=== PATIENT | female | born 1965 | race Caucasian/White ===

== ENCOUNTER 2017-08-07 21:59 | Emergency (ER) | payer MEDICAID ==
[~2017-08-07] VITALS: Ht 160 cm; Wt 61.2 kg
[~2017-08-07 21:59] MED LIST: ALBUTEROL SULF8.5 GM INH; AZITHROMYCIN250 MG ORAL; CLINDAMYCIN HC300 MG ORAL; IBUPROFEN600 MG ORAL; NKM
[2017-08-07 22:34] VITALS: BP 118/76
[2017-08-07] MEDS ORDERED: IBUPROFEN600 MG ORAL (22:36)
[2017-08-07] MEDS ORDERED: AMOXICILLIN500 MG ORAL (22:36)
--- NOTE | 2017-08-07 22:37 | Emergency Room Report ---
History of Present Illness General Chief Complaint: Toothache Source: Patient Present Illness HPI Is a 51-year-old female with no sign of and past medical history. She presents with chief complaint of toothache. Onset for last 3 days. She has a cracked tooth his been there for a while now. Now with painful sensation to the right upper face. She was concerned that this may be related to her head injury she had a week ago. Was to pop her head into a shelf. No loss of consciousness. Pain is 7 out of 10. She has not take anything for it. Allergies: Coded Allergies: SULFAMETHOXAZOLE (Verified Allergy, Intermediate, Anaphylaxis, 03/06/12) TRIMETHOPRIM (Verified Allergy, Intermediate, Anaphylaxis, 03/06/12) CODEINE (Verified Adverse Reaction, Intermediate, GI UPSET, 03/06/12) Patient History Past Medical History: see triage record, old chart reviewed Past Surgical History: other Pertinent Family History: none Social History: Denies: smoking Last Menstrual Period: n/a Now: No Immunizations: other Reviewed Nursing Documentation: PMH: Agreed; PSxH: Agreed Nursing Documentation-PM Past Medical History: No Stated History Review of Systems Eye: Denies: eye pain, blurred vision ENT: Denies: ear pain, nose congestion, throat swelling Respiratory: Denies: cough, shortness of breath Cardiovascular: Denies: chest pain, palpitations Gastrointestinal: Denies: abdominal pain, diarrhea, nausea, vomiting Musculoskeletal: Denies: back pain, joint pain Skin: Denies: rash Neurological: Denies: headache, numbness Endocrine: Denies: increased thirst, increased urine Hematologic/Lymphatic: Denies: easy bruising All Other Systems: negative except mentioned in HPI Physical Exam Vital Signs Date Time Temp Pulse Resp B/P (MAP) Pulse Ox O2 Delivery O2 Flow Rate FiO2 08/07/17 22:19 98.3 73 16 118/76 100 Room Air 98.2 vitals normal Sp02 EP Interpretation: reviewed, normal General Appearance: well appearing, no apparent distress, alert Head: normocephalic, atraumatic Eyes: bilateral eye PERRL, bilateral eye EOMI ENT: hearing grossly normal, normal pharynx, other - 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 No abscess seen. No redness. Neck: full range of motion, supple, no meningismus Respiratory: chest non-tender, lungs clear, normal breath sounds Cardiovascular #1: regular rate, rhythm, no murmur Gastrointestinal: normal bowel sounds, non tender, no mass, no organomegaly, no bruit, non-distended Musculoskeletal: back normal, gait/station normal, normal range of motion Psychiatric: mood/affect normal Skin: warm/dry Medical Decision Making Diagnostic Impression: Primary Impression: Toothache ER Course Patient with dental pain. Most likely early infection. We'll discharge home. We'll refer to see dentist. no abscess that can be I&D. Last Vital Signs Date Time Temp Pulse Resp B/P (MAP) Pulse Ox O2 Delivery O2 Flow Rate FiO2 08/07/17 22:19 98.3 73 16 118/76 100 Room Air 98.2 Status: unchanged Disposition: HOME, SELF-CARE Condition: Stable Scripts Ibuprofen* (MOTRIN*) 600 Mg Tablet 600 MG ORAL THREE TIMES A DAY, #30 TAB 0 Refills Prov: WHIT STOKES M.D. 08/07/17 Amoxicillin* (AMOXIL*) 500 Mg Capsule 500 MG ORAL THREE TIMES A DAY, #21 CAP Prov: WHIT STOKES M.D. 08/07/17 Patient Instructions: Dental Pain Additional Instructions: Follow-up with dentist ZACH. Return if worse. WHIT STOKES M.D. Aug 07, 2017 22:37
== END 2017-08-07 23:32 | disposition home or self-care (01) ==
LOC: EMR 22:30
DX: K08.89 Other specified disorders of teeth and supporting structures (principal); Z88.2 Allergy status to sulfonamides; Z88.5 Allergy status to narcotic agent
CPT/HCPCS: 99284

== ENCOUNTER 2017-10-06 21:26 | Emergency (ER) | payer MEDICAID ==
[~2017-10-06] VITALS: Ht 160 cm; Wt 54.4 kg
[~2017-10-06 21:26] MED LIST changes: +AMOXICILLIN500 MG ORAL
--- NOTE | 2017-10-06 22:03 | Emergency Room Report ---
History of Present Illness General Chief Complaint: Abdominal Pain Source: Patient, Medical Record Present Illness HPI Is a 52-year-old female withan past medical history. She presents with chief complaint abdominal pain. Onset for almost a month now. She said she get a lot of gas and flatulence. Anytime she eats she started burping and having flatulent. Complaining of cramping pain. Has not seen a doctor for it she came in today because she noticed some rectal bleeding. No fever or chills. No trauma. No weight loss. No urinary complaint. Denies any other complaint. Allergies: Coded Allergies: SULFAMETHOXAZOLE (Verified Allergy, Intermediate, Anaphylaxis, 03/06/12) TRIMETHOPRIM (Verified Allergy, Intermediate, Anaphylaxis, 03/06/12) CODEINE (Verified Adverse Reaction, Intermediate, GI UPSET, 03/06/12) Patient History Past Medical History: see triage record, old chart reviewed Past Surgical History: other Pertinent Family History: none Social History: Denies: smoking Now: No Immunizations: other Reviewed Nursing Documentation: PMH: Agreed; PSxH: Agreed Nursing Documentation-PMH Past Medical History: No Stated History Review of Systems Eye: Denies: eye pain, blurred vision ENT: Denies: ear pain, nose congestion, throat swelling Respiratory: Denies: cough, shortness of breath Cardiovascular: Denies: chest pain, palpitations Gastrointestinal: Reports: abdominal pain; Denies: diarrhea, nausea, vomiting Musculoskeletal: Denies: back pain, joint pain Skin: Denies: rash Neurological: Denies: headache, numbness Endocrine: Denies: increased thirst, increased urine Hematologic/Lymphatic: Denies: easy bruising All Other Systems: negative except mentioned in HPI Physical Exam Vital Signs Date Time Temp Pulse Resp B/P (MAP) Pulse Ox O2 Delivery O2 Flow Rate FiO2 10/06/17 21:51 98.4 78 16 120/86 98 Room Air 98.4 vitals normal Sp02 EP Interpretation: reviewed, normal General Appearance: well appearing, no apparent distress, alert Head: normocephalic, atraumatic Eyes: bilateral eye PERRL, bilateral eye EOMI ENT: hearing grossly normal, normal pharynx Neck: full range of motion, supple, no meningismus Respiratory: chest non-tender, lungs clear, normal breath sounds Cardiovascular #1: regular rate, rhythm, no murmur Gastrointestinal: normal bowel sounds, non tender, no mass, no organomegaly, no bruit, non-distended Rectal: other - patient refused Musculoskeletal: back normal, gait/station normal, normal range of motion Psychiatric: mood/affect normal Skin: warm/dry Medical Decision Making Diagnostic Impression: Primary Impression: Abdominal pain Qualified Codes: R10.84 - Generalized abdominal pain Additional Impression: UTI (urinary tract infection) Qualified Codes: N30.00 - Acute cystitis without hematuria ER Course Patient with abdominal pain. Unknown etiology. No pain here. Pain most likely secondary to gas pain. We'll discharge home. She will need a colonoscopy. Lab Results Impression labs unremarkable. Last Vital Signs Date Time Temp Pulse Resp B/P (MAP) Pulse Ox O2 Delivery O2 Flow Rate FiO2 10/06/17 21:51 98.4 78 16 120/86 98 Room Air 98.4 Status: improved Disposition: HOME, SELF-CARE Condition: Stable Scripts Simethicone* (SIMETHICONE*) 80 Mg Tab.chew 80 MG ORAL Q8H PRN for GAS PAIN, #20 TAB 0 Refills Prov: WHIT STOKES M.D. 10/06/17 Referrals: [facility] (PCP) Patient Instructions: Abdominal Pain, Adult Additional Instructions: Follow-up your doctor in 7 days. You may need a referral to see a med admin for colonoscopy. Return if worse. HWIT STOKES M.D. Oct 06, 2017 22:03
[2017-10-06 22:10] LABS: APPEARANCE,URINE SLIGHTLY CLOUDY; BILIRUBIN, URINE NEGATIVE (NEGATIVE); COLOR,URINE AMBER; GLUCOSE, URINE (UA) NEGATIVE (NEGATIVE); KETONES,URINE NEGATIVE (NEGATIVE); LEUKOCYTE ESTERASE ,URINE 1+ (NEGATIVE); NITRITE,URINE NEGATIVE (NEGATIVE); PH,URINE 5 (4.5-8.0); PROTEIN,URINE 1+ (NEGATIVE); UROBILINOGEN,URINE NORMAL MG/DL (0.0-1.0)
[2017-10-06 22:18] VITALS: BP 120/86
[2017-10-06 22:23] LABS: BASOPHILS % (AUTO) 0.6 % (0.0-2.0); EOSINOPHILS % (AUTO) 2.8 % (0.0-3.0); HEMOGLOBIN 11.8 G/DL (12.0-16.0); LYMPHOCYTES % (AUTO) 17.5 % (20.0-45.0); MEAN CORPUSCULAR VOLUME 91 FL (80-99); MONOCYTES % (AUTO) 7.2 % (1.0-10.0); NEUTROPHILS % (AUTO) 71.8 % (45.0-75.0); PLATELET COUNT 338 K/UL (150-450); RED BLOOD COUNT 3.74 M/UL (4.20-5.40); RED CELL DISTRIBUTION WIDTH 11.3 % (11.6-14.8); WHITE BLOOD COUNT 9.4 K/UL (4.8-10.8)
[2017-10-06 22:42] LABS: ANION GAP 12 mmol/L (5-15); BLOOD UREA NITROGEN 10 mg/dL (7-18); CARBON DIOXIDE 26 MMOL/L (21-32); CHLORIDE 102 MMOL/L (98-107); CREATININE 0.7 MG/DL (0.55-1.30); POTASSIUM 3.6 MMOL/L (3.5-5.1); SODIUM 140 MMOL/L (136-145)
[2017-10-06 22:48] LABS: ALANINE AMINOTRANSFERASE 39 U/L (12-78); ALBUMIN 3.9 G/DL (3.4-5.0); ALBUMIN/GLOBULIN RATIO 0.9 (1.0-2.7); ALKALINE PHOSPHATASE 101 U/L (46-116); ASPARTATE AMINO TRANSFERASE 31 U/L (15-37); BILIRUBIN,TOTAL 0.4 MG/DL (0.2-1.0)
[2017-10-06] MEDS ORDERED: cefTRIAXone 1 GM in NS 55 ML IVPB ONE (23:30)
[2017-10-06] MEDS ORDERED: SIMETHICONE80 MG ORAL (23:47)
[2017-10-06] MEDS ORDERED: CEPHALEXIN500 MG ORAL (23:49)
[2017-10-07 00:09] VITALS: BP 112/68
[2017-10-07 00:11] VITALS: BP 112/68
== END 2017-10-07 00:13 | disposition home or self-care (01) ==
LOC: EMR 21:49
DX: N39.0 Urinary tract infection, site not specified (principal); R10.9 Unspecified abdominal pain; Z88.2 Allergy status to sulfonamides; Z88.8 Allergy status to other drugs, medicaments and biological substances
CPT/HCPCS: 36415; 80053; 80307; 81003; 83690; 85025; 87086; 96361; 96365; 99285; J0696

== ENCOUNTER 2017-12-06 09:12 | Emergency (ER) | payer MEDICAID ==
[~2017-12-06] VITALS: Ht 162.6 cm; Wt 59.4 kg
[~2017-12-06 09:12] MED LIST changes: +CEPHALEXIN500 MG ORAL; +SIMETHICONE80 MG ORAL
[2017-12-06] MEDS ORDERED: IRON159 MG PO (09:19)
[2017-12-06 09:29] VITALS: BP 108/74
[2017-12-06 09:53] VITALS: BP 108/74
--- NOTE | 2017-12-06 09:54 | Emergency Room Report ---
History of Present Illness General Chief Complaint: Shoulder Injury Source: Patient Present Illness HPI 52-year-old female presents ED complaining of right shoulder pain. Started 2 days ago after moving heavy furniture. States she's having persistent pain in her right shoulder since. Unable to sleep. Pain is 9 out of 10, throbbing, radiating down the right arm. Denies any other injuries. States she has difficulty raising her shoulder. No other aggravating relieving factors. Denies any other associated symptoms Allergies: Coded Allergies: SULFAMETHOXAZOLE (Verified Allergy, Intermediate, Anaphylaxis, 03/06/12) TRIMETHOPRIM (Verified Allergy, Intermediate, Anaphylaxis, 03/06/12) CODEINE (Verified Adverse Reaction, Intermediate, GI UPSET, 03/06/12) Patient History Past Medical History: none Past Surgical History: none Pertinent Family History: none Social History: Denies: smoking, alcohol use, drug use Last Menstrual Period: 6 yrs ago Now: No Immunizations: UTD Reviewed Nursing Documentation: PMH: Agreed; PSxH: Agreed Nursing Documentation-PMH Past Medical History: No Stated History Review of Systems All Other Systems: negative except mentioned in HPI Physical Exam Vital Signs Date Time Temp Pulse Resp B/P (MAP) Pulse Ox O2 Delivery O2 Flow Rate FiO2 12/06/17 09:13 98.4 67 18 108/74 98 Room Air 98.4 Sp02 EP Interpretation: reviewed, normal General Appearance: no apparent distress, alert, GCS 15, non-toxic Head: normocephalic Eyes: bilateral eye normal inspection, bilateral eye PERRL ENT: normal ENT inspection Neck: normal inspection Respiratory: normal inspection Cardiovascular #1: normal inspection Gastrointestinal: normal inspection Rectal: deferred Genitourinary: no CVA tenderness Musculoskeletal: decreased range of motion, tender - R shoulder Neurologic: alert, oriented x3, responsive, motor strength/tone normal, sensory intact, speech normal Psychiatric: normal inspection Skin: normal inspection Lymphatic: normal inspection Procedures Splinting Splinting : Consent: Verbal Pre-Made Type: shoulder sling Pre-Proc Neuro Vasc Exam: normal Post-Proc Neuro Vasc Exam: normal Patient Tolerated: Well Complications: None Medical Decision Making Diagnostic Impression: Primary Impression: Shoulder injury Qualified Codes: S49.91XA - Unspecified injury of right shoulder and upper arm , initial encounter ER Course Hospital Course 52-year-old F presents to ED complaining of R shoulder pain s/p moving heavy furniture Differential diagnoses include: Fracture, dislocation, sprain, contusion Clinical course Patient placed on stretcher. After initial history and physical, I ordered pain medications and Xrays of R shoulder Xrays prelim read shows no acute fracture/dislocation. placed in sling Discussed findings with patient. No bony abnormalities. Possible rotator cuff injury versus tendinitis. We'll provide analgesics. Ice, rest. We'll provide orthopedic referral Diagnosis - shoulder injury Stable and discharged to home with prescription for tylenol. apply ice, keep elevated. weight bear as tolerated. Followup with PMD. Return to ED if symptoms recur or worsen Other X-Ray Diagnostic Results Other X-Ray Diagnostic Results : X-Ray ordered: R shoulder # of Views/Limited Vs Complete: 3 View Indication: Pain EP Interpretation: Yes Interpretation: no dislocation, no soft tissue swelling, no fractures Impression: No acute disease Electronically Signed by: Electronically signed by Alexander Merritt MD Last Vital Signs Date Time Temp Pulse Resp B/P (MAP) Pulse Ox O2 Delivery O2 Flow Rate FiO2 12/06/17 09:42 98.4 12/06/17 09:29 76 18 108/74 98 Room Air Status: improved Disposition: HOME, SELF-CARE Condition: Stable Scripts Acetaminophen* (TYLENOL EXTRA STRENGTH*) 500 Mg Tablet 500 MG ORAL Q8H PRN for Prn Headache/Temp > 101, #30 TAB 0 Refills Prov: Alexander Merritt MD 12/06/17 Referrals: [facility] (PCP) Alexander Merritt MD Dec 06, 2017 09:54
[2017-12-06] MEDS ORDERED: TYLENOL EXTRA500 MG ORAL (10:31)
--- NOTE | 2017-12-06 15:23 | Diagnostic Imaging Report ---
Indication: Extreme right shoulder pain Technique: 3 views of the right shoulder Comparison: none Findings: There is calcific tendinosis of the rotator cuff. No acute fractures. No dislocations. Joint spaces are preserved. Visualized ribs are intact Impression: No acute bony trauma Positive for rotator cuff calcific tendinosis
== END 2017-12-06 09:53 | disposition home or self-care (01) ==
LOC: EMR 09:42
DX: S49.91XA Unspecified injury of right shoulder and upper arm, initial encounter (principal); X50.0XXA Overexertion from strenuous movement or load, initial encounter; Y92.9 Unspecified place or not applicable; Z88.2 Allergy status to sulfonamides; Z88.5 Allergy status to narcotic agent
CPT/HCPCS: 29105; 99283

== ENCOUNTER 2018-04-14 12:54 | Emergency (ER) | payer MEDICAID ==
[~2018-04-14] VITALS: Ht 162.6 cm; Wt 59.0 kg
[~2018-04-14 12:54] MED LIST changes: +IRON159 MG PO; +TYLENOL EXTRA500 MG ORAL
[2018-04-14] MEDS ORDERED: NKM (13:02)
[2018-04-14 13:13] VITALS: BP 105/77
[2018-04-14] MEDS ORDERED: Mylanta II UD 30ml ORAL ONE (13:30)
[2018-04-14] MEDS ORDERED: Dicyclomine HCl 10mg/5ml oral soln ORAL ONE (13:30)
[2018-04-14] MEDS ORDERED: Lidocaine 2% Visc 15ml soln ORAL ONE (13:30)
[2018-04-14 13:43] LABS: APPEARANCE,URINE CLEAR; BILIRUBIN, URINE NEGATIVE (NEGATIVE); GLUCOSE, URINE (UA) NEGATIVE (NEGATIVE); KETONES,URINE NEGATIVE (NEGATIVE); LEUKOCYTE ESTERASE ,URINE 1+ (NEGATIVE); NITRITE,URINE NEGATIVE (NEGATIVE); PH,URINE 5 (4.5-8.0); PROTEIN,URINE 1+ (NEGATIVE); UROBILINOGEN,URINE NORMAL MG/DL (0.0-1.0)
[2018-04-14 13:50] LABS: COLOR,URINE YELLOW
--- NOTE | 2018-04-14 14:13 | Emergency Room Report ---
History of Present Illness General Chief Complaint: Abdominal Pain Source: Patient Present Illness HPI 52-year-old female patient presents the ER complaining of epigastric abdominal pain and diarrhea for the past 4 days. Patient reports that after eating and drinking she begins to experience epigastric pain. Denies history of acid reflux however reports a history of possible ulcer, states she is "unsure". Reports that pain is burning. Denies chest pain or shortness of breath. Denies vomiting. Reports that she began to experience possible sinus infection so she decided to begin taking Augmentin that was prescribed to her daughter. Reports that after beginning take Augmentin for 2 days she begain to experience diarrhea, states she stopped taking the medication. Reports watery diarrhea. Denies recent travel outside the country. Denies fever, chest pain, shortness of breath. Denies contacts with similar symptoms. Denies syncope or dizziness. Reports able to tolerate p.o. fluids. Denies other aggravating or relieving factors. Denies dysuria, hematuria, vaginal discharge. Allergies: Coded Allergies: SULFAMETHOXAZOLE (Verified Allergy, Intermediate, Anaphylaxis, 03/06/12) TRIMETHOPRIM (Verified Allergy, Intermediate, Anaphylaxis, 03/06/12) CODEINE (Verified Adverse Reaction, Intermediate, GI UPSET, 03/06/12) Patient History Past Medical History: see triage record Last Menstrual Period: 2013 Now: No : 4 Para: 4 Reviewed Nursing Documentation: PMH: Agreed; PSxH: Agreed Nursing Documentation-PMH Past Medical History: No Stated History Review of Systems All Other Systems: negative except mentioned in HPI Physical Exam Vital Signs Date Time Temp Pulse Resp B/P (MAP) Pulse Ox O2 Delivery O2 Flow Rate FiO2 04/14/18 12:56 98.2 95 18 108/75 98 Room Air 04/14/18 13:13 100 Sp02 EP Interpretation: reviewed, normal General Appearance: well appearing, no apparent distress, alert, GCS 15, non- toxic Head: normocephalic, atraumatic Eyes: bilateral eye normal inspection, bilateral eye PERRL ENT: hearing grossly normal, normal pharynx, no angioedema, normal voice, uvula midline, moist mucus membranes Neck: full range of motion, no bony tend Respiratory: lungs clear, normal breath sounds, no rhonchi, no respiratory distress, no accessory muscle use, no wheezing, speaking full sentences Cardiovascular #1: regular rate, rhythm, no edema Gastrointestinal: normal bowel sounds, non tender, soft, no mass, non-distended , no guarding, no rebound Genitourinary: no CVA tenderness Musculoskeletal: back normal, digits/nails normal, gait/station normal, normal range of motion, non-tender Neurologic: alert, oriented x3, responsive, motor strength/tone normal, sensory intact Psychiatric: mood/affect normal Skin: no rash Medical Decision Making PA Attestation Dr. Hu is my supervising Physician whom patient management has been discussed with. Diagnostic Impression: Primary Impression: Diarrhea Additional Impression: Abdominal pain ER Course Pt. presents to the ED c/o epigastric abdominal pain and diarrhea. Ddx considered but are not limited to viral syndrome, gastritis, enteritis, GERD , PUD, h.pylori, Vital signs: are WNL, pt. is afebrile at discharge. ORDERS: none required at this time, the diagnosis is clinical ED COURSE: Provided with pepcid and GI cocktail in the ER. No abdominal TTP, negative Rovsing, normal bowel sounds. PE benign. Hx and symptoms consistent with GERD and possible PUD. Advised to followup with PCP for further evaluation and treatment for possible endoscopy and H.pylori testing. Take Tylenol for pain symptoms. UA shows no nitrites, patient asx, few epithelial cells, low suspicion for UTI, does not require abx at this time. Patient diarrhea likely due to Augmentin use, advised patient not to take medications unless prescribed to you. Followup with PCP for further testing and treatment for possible C.dif. Patient not tachycardic, afebrile, vitals stable, no signs of dehydration, moist mucus membranes, cap refill <2seconds, normal skin turgor. Does not require tx for c.dif at this time. Patient reports eating and drinking normally. ER precautions given. DISCHARGE: Rx provided for omeprazole Patient instructed on BRAT diet. Patient instructed to remain hydrated, drink plenty of fluids. Patient questions asked and answered. Patient states understanding and agreement to treatment plan. At this time pt. is stable for d/c to home. Patient is resting comfortably, laughing, in no acute distress, nontoxic appearing. Will provide printed patient care instructions, and any necessary prescriptions. Care plan and follow up instructions have been discussed with the patient prior to discharge. Patient instructed to followup with PCP in 3-5 days. Patient reports understanding and agreement to treatment plan. Patient questions asked and answered. ER precautions given; patient instructed to return to ER for new or worsening of symptoms including but not limited to fever, intractable vomiting, severe abdominal pain, blood in stool. - Please note that this Emergency Department Report was dictated using [employer] economist technology software, occasionally this can lead to erroneous entry secondary to interpretation by the dictation equipment. Labs Test 04/14/18 13:36 Urine Color Yellow Urine Appearance Clear Urine pH 5 (4.5-8.0) Urine Specific [place] 1.025 (1.005-1.035) Urine Protein 1+ (NEGATIVE) Urine Glucose (UA) Negative (NEGATIVE) Urine Ketones Negative (NEGATIVE) Urine Blood 4+ (NEGATIVE) Urine Nitrite Negative (NEGATIVE) Urine Bilirubin Negative (NEGATIVE) Urine Urobilinogen Normal MG/DL (0.0-1.0) Urine Leukocyte Esterase 1+ (NEGATIVE) Urine RBC 5-10 /HPF (0 - 2) Urine WBC 2-4 /HPF (0 - 2) Urine Squamous Epithelial Cells Few /LPF (NONE/OCC) Urine Bacteria Few /HPF (NONE) Urine Mucus Moderate /LPF (NONE/OCC) Urine HCG, Qualitative Negative (NEGATIVE) Last Vital Signs Date Time Temp Pulse Resp B/P (MAP) Pulse Ox O2 Delivery O2 Flow Rate FiO2 04/14/18 13:13 95 18 Room Air 100 04/14/18 13:13 98.2 105/77 100 Status: improved Disposition: HOME, SELF-CARE Condition: Stable Scripts Omeprazole (OMEPRAZOLE) 20 Mg Tablet. 20 MG ORAL DAILY for 14 Days, #28 TAB Prov: Wander Sigala 04/14/18 Patient Instructions: Abdominal Pain, Adult, Diarrhea, Adult, [id number], Diarrhea, Additional Instructions: Followup with primary care provider in 3 -5 days. Discuss stool tests for possible C. difficile. Discuss referral to GI specialist for possible endoscopy to rule out peptic vs gastric ulcer. Discuss need for testing for H. pylori. Avoid spicy foods, avoid dairy foods. BRAT diet: bananas, rice, apple sauce, toast. Consider Immodium for diarrhea and Tylenol for pain symptoms. Take medications as directed. Patient questions asked and answered. ER precautions given, patient instructed to return to ER immediately for any new or worsening of symptoms. Wander Sigala Apr 14, 2018 14:13
[2018-04-14] MEDS ORDERED: OMEPRAZOLE20 M3 ORAL (14:17)
[2018-04-14 14:25] VITALS: BP 100/75
== END 2018-04-14 14:26 | disposition home or self-care (01) ==
LOC: EMR 13:35
DX: R10.13 Epigastric pain (principal); R19.7 Diarrhea, unspecified; Z88.2 Allergy status to sulfonamides; Z88.5 Allergy status to narcotic agent
CPT/HCPCS: 81003; 81025; 99283

== ENCOUNTER 2019-04-13 14:42 | Emergency (ER) | payer MEDICAID ==
[~2019-04-13] VITALS: Ht 160 cm; Wt 56.7 kg
[~2019-04-13 14:42] MED LIST changes: +OMEPRAZOLE20 M3 ORAL
[2019-04-13 14:58] VITALS: BP 94/66
--- NOTE | 2019-04-13 15:00 | NUR ---
ED Nurse Note: Patient walked in to ER c/o flu like synptoms, headache, fever. Patient presented calm, T 99.2, AAO x4, VSS at this time.
[2019-04-13 15:31] LABS: APPEARANCE,URINE SLIGHTLY CLOUDY; BILIRUBIN, URINE NEGATIVE (NEGATIVE); COLOR,URINE PALE YELLOW; GLUCOSE, URINE (UA) NEGATIVE (NEGATIVE); KETONES,URINE NEGATIVE (NEGATIVE); LEUKOCYTE ESTERASE ,URINE NEGATIVE (NEGATIVE); NITRITE,URINE NEGATIVE (NEGATIVE); PH,URINE 6 (4.5-8.0); PROTEIN,URINE NEGATIVE (NEGATIVE); UROBILINOGEN,URINE NORMAL MG/DL (0.0-1.0)
--- NOTE | 2019-04-13 15:40 | Emergency Room Report ---
History of Present Illness General Chief Complaint: Flu Like Symptoms Source: Patient Present Illness HPI 53-year-old female with no significant past medical history here complaining of 2 days of generalized body ache, cough and congestion. Denies abdominal pain, nausea vomiting. Has not traveled outside of [place]. Also has a daughter here with her who presents with similar symptoms. Denies chest pain, palpitation, headache and dizziness at this time. Complains of 2 days of urinary frequency and urgency. Denies dysuria. Denies at this time. Has not taken medication for symptom relief. Allergies: Coded Allergies: SULFAMETHOXAZOLE (Verified Allergy, Intermediate, Anaphylaxis, 03/06/12) TRIMETHOPRIM (Verified Allergy, Intermediate, Anaphylaxis, 03/06/12) CODEINE (Verified Adverse Reaction, Intermediate, GI UPSET, 03/06/12) Patient History Past Medical History: see triage record Past Surgical History: none Pertinent Family History: none Last Menstrual Period: menopause Now: No Immunizations: UTD Reviewed Nursing Documentation: PMH: Agreed; PSxH: Agreed Nursing Documentation-PMH Past Medical History: No Stated History Review of Systems All Other Systems: negative except mentioned in HPI Physical Exam Vital Signs Date Time Temp Pulse Resp B/P (MAP) Pulse Ox O2 Delivery O2 Flow Rate FiO2 04/13/19 14:51 99.1 88 16 94/66 (75) 97 Room Air Sp02 EP Interpretation: reviewed, normal General Appearance: no apparent distress, alert, GCS 15, non-toxic Head: normocephalic, atraumatic Eyes: bilateral eye normal inspection, bilateral eye PERRL ENT: hearing grossly normal, normal pharynx, no angioedema, normal voice Neck: full range of motion, supple, thyroid normal, no meningismus, supple/symm /no masses Respiratory: chest non-tender, lungs clear, normal breath sounds, no rhonchi, no wheezing, speaking full sentences Cardiovascular #1: regular rate, rhythm, no edema, no murmur Gastrointestinal: non tender, soft, no mass Genitourinary: no CVA tenderness Musculoskeletal: back normal Neurologic: alert, motor strength/tone normal, oriented x3, sensory intact, responsive, speech normal Psychiatric: judgement/insight normal, memory normal, mood/affect normal, no suicidal/homicidal ideation Skin: no rash, palpation normal, normal color, warm/dry Lymphatic: no adenopathy Medical Decision Making PA Attestation All diagnoses and treatment plans were reviewed and discussed with my supervising physician Dr. Knowles Diagnostic Impression: Primary Impression: Flu-like symptoms Additional Impression: Urinary frequency ER Course 53-year-old female with no significant past medical history here complaining of 2 days of generalized body ache, cough and congestion. Denies abdominal pain, nausea vomiting. Has not traveled outside of [place]. Also has a daughter here with her who presents with similar symptoms. Denies chest pain, palpitation, headache and dizziness at this time. Complains of 2 days of urinary frequency and urgency. Denies dysuria. Denies at this time. Has not taken medication for symptom relief. Ddx considered but are not limited to: strep pharyngitis, URI, tonsillitis, peritonsillar abscess, influenza Vital signs: are WNL, pt. is afebrile H&PE are most consistent with: Flulike symptoms, urinary frequency ORDERS: UA, urine culture, Tamiflu, Phenergan, Tylenol, Keflex for symptomatic relief pending urine culture ED INTERVENTIONS: None required at this time. DISCHARGE: At this time pt. is stable for d/c to home. Will provide printed patient care instructions, and any necessary prescriptions. Care plan and follow up instructions have been discussed with the patient prior to discharge. Patient take medication as directed, follow-up with your primary care provider , if worsening symptoms return to the emergency room Last Vital Signs Date Time Temp Pulse Resp B/P (MAP) Pulse Ox O2 Delivery O2 Flow Rate FiO2 04/13/19 14:58 99.1 16 94/66 97 Room Air 04/13/19 14:58 88 Disposition: HOME, SELF-CARE Condition: Stable Scripts Acetaminophen* (TYLENOL EXTRA STRENGTH*) 500 Mg Tablet 500 MG ORAL Q8H PRN for Prn Headache/Temp > 101, #30 TAB 0 Refills Prov: Gamaliel Maldonado PA 04/13/19 Promethazine Hcl (PROMETHAZINE HCL*) 6.25 Mg/5 Ml Syrup 5 ML ORAL Q6H, #120 ML 0 Refills Prov: Gamaliel Maldonado PA 04/13/19 Oseltamivir Phosphate (Tamiflu) 75 Mg Capsule 75 MG ORAL TWICE A DAY for 5 Days, #10 CAP Prov: Gamaliel Maldonado PA 04/13/19 Referrals: [facility] (PCP) Patient Instructions: Urinary Tract Infection, [id number] Additional Instructions: Take medication as directed, follow-up with your primary care provider, increase oral hydration, if worsening symptoms return to the emergency room Gamaliel Maldonado Apr 13, 2019 15:40
[2019-04-13] MEDS ORDERED: TYLENOL EXTRA500 MG ORAL (15:46)
[2019-04-13] MEDS ORDERED: PROMETHAZI6.25 MG/1 ORAL (15:46)
[2019-04-13] MEDS ORDERED: TAMIFLU75 MG ORAL (15:46)
[2019-04-13] MEDS ORDERED: CEPHALEXIN500 MG ORAL (16:00)
[2019-04-13 16:04] VITALS: BP 94/66
--- NOTE | 2019-04-13 16:06 | NUR ---
ED Nurse Note: Pt cleared by health care Provider for discharge. DC instructions/prescription was given and explained to pt and verbalized understanding of teachings. All medical deviecs such as ID band removed. Pt is AAO x4, ambulatory and left with all personal belongings.
== END 2019-04-13 16:05 | disposition home or self-care (01) ==
LOC: EMR 15:00
DX: R05 Cough (principal); R35.0 Frequency of micturition; Z88.2 Allergy status to sulfonamides; Z88.6 Allergy status to analgesic agent
CPT/HCPCS: 81003; Z7502; 99283

== ENCOUNTER 2020-02-05 18:44 | Emergency (ER) | payer MEDICAID ==
[~2020-02-05] VITALS: Ht 162.6 cm; Wt 56.7 kg
[~2020-02-05 18:44] MED LIST changes: +PROMETHAZI6.25 MG/1 ORAL; +TAMIFLU75 MG ORAL
[2020-02-05 18:57] VITALS: BP 111/67
--- NOTE | 2020-02-05 18:57 | NUR ---
ED Nurse Note: Pt walked in to ED from home c/o cough, headache, fever, SOB, bodyache x 5 days. AAOx4, verbally responsive. Isolation precaution is in place.
--- NOTE | 2020-02-05 19:34 | Emergency Room Report ---
History of Present Illness General Chief Complaint: General Complaint Source: Patient Present Illness HPI 54-year-old female with no significant past medical history here complaining of 3 days of cough, congestion, shortness of breath. Denies any fever and chills, diarrhea, loss of taste and smell. Patient also has her daughter here with her who has been having similar symptoms for the past 2 weeks with a new onset of loss of taste and smell. Appears to be stable with stable vital signs satting 97% and afebrile. Denies chest pain, headache and dizziness. Has not taken medication for symptom relief. Reports that has history of asthma. Also complains of generalized body ache. Allergies: Coded Allergies: SULFAMETHOXAZOLE (Verified Allergy, Intermediate, Anaphylaxis, 03/06/12) TRIMETHOPRIM (Verified Allergy, Intermediate, Anaphylaxis, 03/06/12) CODEINE (Verified Adverse Reaction, Intermediate, GI UPSET, 03/06/12) COVID-19 Screening Contact w/high risk pt: No Experienced COVID-19 symptoms?: Yes COVID-19 Testing performed [employer]: No Patient History Past Medical History: see triage record Past Surgical History: none Pertinent Family History: none Now: No Immunizations: UTD Reviewed Nursing Documentation: PMH: Agreed; PSxH: Agreed Nursing Documentation-PMH Past Medical History: No Stated History Review of Systems All Other Systems: negative except mentioned in HPI Physical Exam Vital Signs Date Time Temp Pulse Resp B/P (MAP) Pulse Ox O2 Delivery O2 Flow Rate FiO2 02/05/20 18:52 98.1 86 19 111/67 (82) 97 Room Air Sp02 EP Interpretation: reviewed, normal General Appearance: no apparent distress, alert, GCS 15, non-toxic Head: normocephalic, atraumatic Eyes: bilateral eye normal inspection, bilateral eye PERRL ENT: hearing grossly normal, normal pharynx, no angioedema, normal voice Neck: full range of motion, supple/symm/no masses Respiratory: no respiratory distress, no retraction, no accessory muscle use, speaking full sentences Cardiovascular #1: regular rate, rhythm Gastrointestinal: non-distended Musculoskeletal: back normal Neurologic: alert, motor strength/tone normal, oriented x3, sensory intact, responsive, speech normal Psychiatric: judgement/insight normal, memory normal, mood/affect normal, no suicidal/homicidal ideation Skin: no rash Lymphatic: no adenopathy Medical Decision Making PA Attestation All my diagnosis and treatment plans were reviewed ad discussed with my supervising physician Dr. Peck Diagnostic Impression: Primary Impression: Suspected 2019 novel coronavirus infection ER Course 54-year-old female with no significant past medical history here complaining of 3 days of cough, congestion, shortness of breath. Denies any fever and chills, diarrhea, loss of taste and smell. Patient also has her daughter here with her who has been having similar symptoms for the past 2 weeks with a new onset of loss of taste and smell. Appears to be stable with stable vital signs satting 97% and afebrile. Denies chest pain, headache and dizziness. Has not taken medication for symptom relief. Reports that has history of asthma. Also complains of generalized body ache. Ddx considered but are not limited to: bronchitis, PNA, URI viral, bacterial bronchitis Vital signs: are WNL, pt. is afebrile H&PE are most consistent with: Suspected coronavirus ORDERS: Chest x-ray, azithromycin, prednisone, albuterol, Motrin ED INTERVENTIONS: None required at this time. DISCHARGE: At this time pt. is stable for d/c to home. Will provide printed patient care instructions, and any necessary prescriptions. Care plan and follow up instructions have been discussed with the patient prior to discharge. Stay home for 2 weeks, you most likely have Covid due to your exposure to your daughter who is most likely positive for Covid due to loss of taste and smell. Get tested for Covid as outpatient at this time we cannot offer Covid test as you are short in the emergency department give her resources. If worsening symp toms return to the emergency room Chest X-Ray Diagnostic Results Chest X-Ray Diagnostic Results : Chest X-Ray Ordered: Yes # of Views/Limited/Complete: 1 View Indication: Other EP Interpretation: Yes PA Xray: Interpretation reviewed, by supervising MD, and agrees with findings. Interpretation: no consolidation, no effusion, no pneumothorax Impression: No acute disease Electronically Signed by: Gamaliel Gee PA-C Last Vital Signs Date Time Temp Pulse Resp B/P (MAP) Pulse Ox O2 Delivery O2 Flow Rate FiO2 02/05/20 18:57 86 19 Room Air 02/05/20 18:57 98.1 111/67 97 Disposition: HOME, SELF-CARE Condition: Stable Scripts Ibuprofen* (MOTRIN*) 600 Mg Tablet 600 MG ORAL Q6H PRN for FOR PAIN, #20 TAB 0 Refills Prov: Gamaliel Maldonado 02/05/20 Azithromycin* (ZITHROMAX*) 250 Mg Tablet 250 MG ORAL DAILY, #6 TAB 0 Refills Take two tables once daily for 1 day, then one tablet once daily for 4 days. Prov: Gamaliel Maldonado 02/05/20 Albuterol Sulfate (VENTOLIN HFA) 18 Gm Hfa.aer.ad 2 PUFFS INH EVERY 6 HOURS, #18 GM 0 Refills Prov: Gamaliel Maldonado 02/05/20 Prednisone* (PREDNISONE*) 20 Mg Tablet 40 MG ORAL DAILY for 5 Days, #10 TAB Prov: Gamaliel Maldonado 02/05/20 Patient Instructions: Upper Respiratory Infection, Adult, [id number] Additional Instructions: Take medication as directed, follow primary care provider, get tested for Covid, you are most likely infected with Covid due to presentation of symptoms and being exposed to her daughter who has lost her taste. Self quarantine for 2 weeks, if worsening symptoms return to the emergency room Gamaliel Maldonado Feb 05, 2020 19:34
[2020-02-05] MEDS ORDERED: ZITHROMAX250 MG ORAL (19:35)
[2020-02-05] MEDS ORDERED: VENTOLIN HFA18 GM INH (19:35)
[2020-02-05] MEDS ORDERED: PREDNISONE20 MG ORAL (19:35)
[2020-02-05] MEDS ORDERED: IBUPROFEN600 M1 ORAL (19:35)
[2020-02-05 19:50] VITALS: BP 111/67
--- NOTE | 2020-02-05 19:50 | NUR ---
ED Nurse Note: Pt cleared by ERPA for discharge. DC instructions/prescription was given and explained to pt and verbalized understanding of teachings. All medical deviecs such as ID band removed. Pt is AAO x4, ambulatory and left with all personal belongings.
--- NOTE | 2020-02-06 16:53 | Diagnostic Imaging Report ---
Indication: Shortness of breath Technique: One view of the chest Comparison: 03/06/2012 Findings: Lungs and pleural spaces are clear. Heart size is normal. Impression: No acute process
== END 2020-02-05 20:00 | disposition home or self-care (01) ==
LOC: EMR 19:30
DX: R05 Cough (principal); R06.02 Shortness of breath; Z20.828 Contact with and (suspected) exposure to other viral communicable diseases; Z88.5 Allergy status to narcotic agent; Z88.2 Allergy status to sulfonamides; Z88.8 Allergy status to other drugs, medicaments and biological substances
CPT/HCPCS: 71045; Z7502; 99283